=== PATIENT | female | born 1980 | race Caucasian/White ===

== ENCOUNTER 2016-10-27 13:59 | Emergency (ER) | payer MEDICAID ==
[2016-10-27 14:08] VITALS: RESP 18; TEMP 98.9
[2016-10-27] MEDS ORDERED: Sodium Chloride 0.9% 1,000 ML IV STA (14:46)
--- NOTE | 2016-10-27 14:59 | ED PDOC ---
Arrival/HPI - General Historian: Patient - History of Present Illness Time/Duration: < week Symptom Onset: Sudden Symptom Course: Unchanged Quality: Aching, Stabbing Severity Level: 8 Activities at Onset: Rest Context: Sitting - General Chief Complaint: GI Problem Time Seen by Provider: 10/27/16 14:06 - History of Present Illness Narrative History of Present Illness (Text): 10/27/16 14:49 36 F that is currently 22 weeks with no significant PMHx presents to [facility] with complaints of intractable nausea/vomitting, fever, productive cough and body aches x 3days. Pt states that she took her son to [facility] and began to feel above symptoms the night following the visit on 10/25/16. Pt has unable to tolerate any po intake for the past 2 days, and has vomitted multiple times with 4 episodes today. Pt has a productive cough with green sputum. Pt took her temperature at home and has been recorded at 104, however she has been taking tylenol which has been breaking her fever. Pt also describes complaints of body aches. She describes the pain as a stabbing sensation that is constant from her head, back and down her legs. Pt admits to headache, dizziness, sore throat, fever, bodyaches, and n/v. Pt denied chest pains, palpitations, diarrhea or urinary symptoms. 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 Past Medical History - Infectious Disease Hx of Infectious Diseases: None - Hematological/Oncological Hx Blood Disorders: No - Psychiatric Hx Substance Use: No - Anesthesia Hx Anesthesia: No Family/Social History Family/Social History: No Known Family HX Smoking Status: Never Smoked Hx Alcohol Use: No Hx Substance Use: No Allergies/Home Meds Allergies/Adverse Reactions: Allergies No Known Allergies Allergy (Verified 10/27/16 14:08) Home Medications: Home Meds Medication Instructions Recorded Confirmed No Known Home Med 10/27/16 10/27/16 Review of Systems - Review of Systems Constitutional: Fevers. absent: Fatigue Eyes: absent: Vision Changes, Photophobia ENT: Sore Throat. absent: Rhinorrhea Respiratory: Cough, Sputum (green). absent: SOB, Wheezing Cardiovascular: absent: Chest Pain, Palpitations, Edema Gastrointestinal: Abdominal Pain (pressure/tenderness llq), Nausea, Vomiting, Food Intolerance. absent: Constipation, Diarrhea Musculoskeletal: Back Pain, Neck Pain, Myalgias Skin: absent: Rash, Pruritis Neurological: Headache, Dizziness. absent: Focal Weakness Endocrine: absent: Diaphoresis, Polyuria, Polydipsia Hemo/Lymphatic: absent: Adenopathy, Easy Bruising Physical Exam Temperature: Afebrile Blood Pressure: Hypotensive Pulse: Tachycardic Respiratory Rate: Normal Appearance: Positive for: Uncomfortable Pain Distress: Mild Mental Status: Positive for: Alert and Oriented X 3 - Systems Exam Head: Present: Atraumatic, Normocephalic Pupils: Present: PERRL Extroacular Muscles: Present: EOMI Conjunctiva: Present: Normal Ears: Present: Normal, NORMAL TM Mouth: Present: Dry Pharnyx: No: ERYTHEMA, EXUDATE Neck: Present: Normal Range of Motion Respiratory/Chest: Present: Clear to Auscultation, Good Air Exchange. No: Respiratory Distress, Accessory Muscle Use Cardiovascular: Present: Regular Rate and Rhythm, Normal S1, S2. No: Murmurs Abdomen: Present: Tenderness (llq pressure/tenderness), Normal Bowel Sounds. No : Rebound, Guarding Upper Extremity: Present: Normal Inspection. No: Cyanosis, Edema Lower Extremity: Present: Normal Inspection. No: Edema Neurological: Present: GCS=15, CN II-XII Intact, Speech Normal Skin: Present: Warm, Dry, Normal Color. No: Rashes Psychiatric: Present: Alert, Oriented x 3, Normal Insight, Normal Concentration Vital Signs Temp Pulse Resp BP Pulse Ox 10/27/16 15:14 98.9 F 116 H 18 101/52 L 97 10/27/16 14:03 98.9 F 116 H 18 101/52 L 99 Medical Decision Making Re-evaluation Time: 16:35 Reassessment Condition: Unchanged ED Course and Treatment: 10/27/16 15:08 Seen and examined with the resident. Our history and physical exam reveals a young woman 22 weeks with a three-day history of fever to 104 along with cough congestion URI and generalized myalgias and arthralgias. She does have some nausea and vomiting. No abdominal pain. There is positive movement. No vaginal discharge or bleeding. Lungs are clear bilaterally.. ( Tolerico,Gene) 10/27/16 15:03 36 F 22wks presents to [facility] with complaints of intractable n/v, fever and body aches. - CBC - CMP - IVF - UA - Rapid flu - Reassess and dispo 10/27/16 16:30 Pt was reassessed. Pt is still feeling nauseous and is experiencing body aches. Labwork did not reveal any acute pathology. Pt can be discharged home with immediate followup with PMD and [facility] [employer] amarjit. Pt is encouraged to take plenty of fluids and tylenol for fever. (Nichoel Liu) - Lab Interpretations Lab Results: 10/27/16 15:00 10/27/16 15:00 Lab Results 10/27/16 15:00: WBC 5.8, RBC 3.72, Hgb 11.7 L, Hct 33.2 L, MCV 89.2, MCH 31.5, MCHC 35.2, RDW 13.2, Plt Count 214, MPV 9.3, Gran % 82.2 H, Lymph % (Auto) 11.1 L, [place] % (Auto) 6.2 H, Eos % (Auto) 0.3 L, Baso % (Auto) 0.2, Gran # 4.75, Lymph # 0.6 L, [place] # 0.4, Eos # 0.0, Baso # 0.01, Sodium 135, Potassium 3.5 L, Chloride 101, Carbon Dioxide 22, Anion Gap 16, BUN 10, Creatinine 0.5, Est GFR ( Amer) > 60, Est GFR (Non-Af Amer) > 60, Random Glucose 93, Calcium 8.8, Total Bilirubin 0.7, AST 32, ALT 33, Alkaline Phosphatase 83, Total Protein 7.1 , Albumin 3.6, Globulin 3.5, Albumin/Globulin Ratio 1.0 L, Urine Color Yellow, Urine Appearance Clear, Urine pH 6.0, Ur Specific [place] 1.025, Urine Protein 30 H, Urine Glucose (UA) Negative, Urine Ketones >=80, Urine Blood Negative, Urine Nitrate Negative, Urine Bilirubin Negative, Urine Urobilinogen 1.0 H, Ur Leukocyte Esterase Moderate H, Urine RBC Negative, Urine WBC 2 - 5, Ur Epithelial Cells Many, Urine Bacteria Many, Influenza Typ A,B (EIA) Negative for flu a/b - Medication Orders Current Medication Orders: Discontinued Medications Sodium Chloride (Sodium Chloride 0.9%) 1,000 mls @ 999 mls/hr IV .Q1H1M STA Stop: 10/27/16 15:46 Last Admin: 10/27/16 15:22 Dose: 999 MLS/HR eMAR Start Stop Document 10/27/16 15:22 SF (Rec: 10/27/16 15:22 SF [id number]) Intravenous Solution Start Date 10/27/16 Start Time 14:50 End Date 10/27/16 End time 15:51 Total Infusion Time 61 Disposition/Present on Arrival - Present on Arrival Any Indicators Present on Arrival: No History of DVT/PE: No History of Uncontrolled Diabetes: No Urinary Catheter: No History of Decub. Ulcer: No History Surgical Site Infection Following: None - Disposition Have Diagnosis and Disposition been Completed?: Yes Disposition Time: 16:35 Patient Plan: Discharge - Disposition Diagnosis: Cold, Nausea & vomiting Disposition: HOME/ ROUTINE Patient Problems: Current Active Problems Problem Status Diagnosed Cold Acute Nausea & vomiting Acute Condition: STABLE Discharge Instructions (ExitCare): Acute Nausea and Vomiting (ED) Additional Instructions: 1. Pt is to FU with [facility] [employer] amarjit 2. Pt is to FU with PMD amarjit 3. Pt is encouraged to drink plenty of fluids 4. Pt is to take tylenol for fever, avoid advil or nsaids 5. Pt is welcomed to return to [facility] ED if develop any acute symptoms. Referrals: Blayne Vega MD [Primary Care Provider] - Follow up with primary
[2016-10-27 15:04] LABS: ADD MANUAL DIFF? NO
[2016-10-27 15:08] LABS: BASO # 0.01 K/mm3 (0.0-2.0); BASO % 0.2 % (0.0-3.0); EOS % 0.3 % (1.5-5.0); GRAN # 4.75 (1.4-6.5); GRAN % 82.2 % (50.0-68.0); HEMATOCRIT 33.2 % (36.0-48.0); LYMPH # 0.6 (1.2-3.4); LYMPH % 11.1 % (22.0-35.0); MEAN CELL VOLUME 89.2 fL (80.0-105.0); MEAN CORPUSCULAR HEMOGLOBIN 31.5 pg (25.0-35.0); MEAN CORPUSCULAR HGB CONC 35.2 g/dl (31.0-37.0); MEAN PLATELET VOLUME 9.3 fl (7.0-11.0); MONO # 0.4 (0.1-0.6); MONO % 6.2 % (1.0-6.0); PLATELET COUNT 214 10^3/uL (120.0-450.0); RED CELL DISTRIBUTION WIDTH 13.2 % (11.5-14.5); URINE BILIRUBIN NEGATIVE (NEGATIVE); URINE BLOOD NEGATIVE (NEGATIVE); URINE GLUCOSE (UA) NEGATIVE (NEGATIVE); URINE KETONE >=80 mg/dL (NEGATIVE); URINE LEUKOCYTE ESTERASE MODERATE Leu/uL (NEGATIVE); URINE PROTEIN 30 mg/dL (<30 mg/dL); WHITE BLOOD COUNT 5.8 10^3/ul (4.5-11.0)
[2016-10-27 15:12] LABS: URINE APPEARANCE CLEAR (CLEAR); URINE COLOR YELLOW (YELLOW)
[2016-10-27 15:13] LABS: URINE RBC NEGATIVE /hpf (0-2)
[2016-10-27 15:14] VITALS: O2SAT 97
[2016-10-27 15:14] LABS: URINE BACTERIA MANY (NEG); URINE EPITHELIAL CELLS MANY /hpf (0-5)
[2016-10-27 15:27] LABS: ALKALINE PHOSPHATASE 83 U/L (38-133); ALT/SGPT 33 U/L (7-56); AST/SGOT 32 U/L (15-39); BILIRUBIN,TOTAL 0.7 mg/dL (0.2-1.3); BLOOD UREA NITROGEN 10 mg/dL (7-21); CALCIUM 8.8 mg/dL (8.4-10.5); CARBON DIOXIDE 22 mmol/L (21-33); CHLORIDE 101 mmol/L (98-107); GFR AFRICAN-AMERICAN > 60; GLUCOSE,RANDOM 93 mg/dL (70-110); POTASSIUM 3.5 mmol/L (3.6-5.0); SODIUM 135 mmol/L (132-148); TOTAL PROTEIN 7.1 g/dL (5.8-8.3)
[2016-10-27 16:55] VITALS: BP 99/57; PULSE 99
== END 2016-10-27 16:57 | disposition home or self-care (01) ==
LOC: ED 13:59
DX: R11.2 Nausea with vomiting, unspecified (principal); J00 Acute nasopharyngitis [common cold]
CPT/HCPCS: 80053; 81001; 85025; 87086; 87804; 96360; 99284; J7040

== ENCOUNTER 2016-11-21 14:50 | Emergency (ER) | payer MEDICAID ==
[2016-11-21 14:54] VITALS: TEMP 98.2
[2016-11-21] MEDS ORDERED: Sodium Chloride 0.9% 1,000 ML IV STA (15:06)
--- NOTE | 2016-11-21 15:16 | ED PDOC ---
Arrival/HPI - General Historian: Patient <Jennifer Vivas - Last Filed: 11/22/16 02:36> <Lauro Hernandez - Last Filed: 11/23/16 19:06> - General Chief Complaint: Seizure Time Seen by Provider: 11/21/16 14:53 - History of Present Illness Narrative History of Present Illness (Text): 11/21/16 15:11 36yr old female who is 25 weeks presents today with possible seizure. pt states she was just recently hospitalized for similar symptoms at [facility]. pt states that whenever she stands for long periods of time she gets dizzy. pt states she is having generalized weakness. she denies cp or sob. she denies headache. pt states she doesnt know what happened today. pt states she was standing outside talking to her friend and the next thing she knows she was in the ambulance. pt states she was just recently diagnosed with "seizures" pt states she is on some medication but doesn't know the name. she is c/o of bruised feeling to left leg; denies numbness or tingling in the extremity. no fever/chills. denies neck or back pain. no other complaints. (Jennifer Vivas) Past Medical History - Provider Review Nursing Documentation Reviewed: Yes - Travel History Have you recently traveled outside [place] w/in the past 3 mons?: No - Infectious Disease Hx of Infectious Diseases: None - Neurological Hx Seizures: Yes (Focal) Other/Comment: Hospitalized last week for seizure activity which seems to be Focal only. Pt aura is dizziness followed by blacking out. - Hematological/Oncological Hx Blood Disorders: No - Psychiatric Hx Substance Use: No - Anesthesia Hx Anesthesia: No <Jennifer Viavs - Last Filed: 11/22/16 02:36> Family/Social History - Physician Review Nursing Documentation Reviewed: Yes Family/Social History: Unknown Family HX Smoking Status: Never Smoked Hx Alcohol Use: No Hx Substance Use: No <Jennifer Vivas - Last Filed: 11/22/16 02:36> Allergies/Home Meds <Jennifer Vivas - Last Filed: 11/22/16 02:36> <Lauro Hernandez - Last Filed: 11/23/16 19:06> Allergies/Adverse Reactions: Allergies No Known Allergies Allergy (Verified 11/21/16 14:58) Home Medications: Home Meds Medication Instructions Recorded Confirmed Vit Calc,Iron,Folic 1 tab PO DAILY 11/21/16 11/21/16 [ Vitamins] Review of Systems - Review of Systems Constitutional: Fatigue. absent: Fevers Eyes: absent: Photophobia, Eye Pain Respiratory: absent: SOB, Cough Cardiovascular: absent: Chest Pain, Palpitations Gastrointestinal: absent: Abdominal Pain, Nausea, Vomiting Genitourinary Female: absent: Dysuria, Frequency, Hematuria Skin: absent: Rash, Pruritis Neurological: Dizziness. absent: Headache, Facial Droop <Jennifer Vivas - Last Filed: 11/22/16 02:36> Physical Exam Vital Signs Reviewed: Yes Temperature: Afebrile Blood Pressure: Normal Pulse: Regular Respiratory Rate: Normal Appearance: Positive for: Well-Appearing, Non-Toxic, Comfortable Pain Distress: None Mental Status: Positive for: Alert and Oriented X 3 Finger Stick Blood Glucose: 82 - Systems Exam Head: Present: Atraumatic Pupils: Present: PERRL Extroacular Muscles: Present: EOMI Conjunctiva: Present: Normal Mouth: Present: Moist Mucous Membranes Pharnyx: Present: Normal Neck: Present: Normal Range of Motion. No: MIDLINE TENDERNESS, Paraspinal Tenderness Respiratory/Chest: Present: Clear to Auscultation, Good Air Exchange. No: Respiratory Distress, Accessory Muscle Use Cardiovascular: Present: Regular Rate and Rhythm, Normal S1, S2. No: Murmurs Abdomen: No: Tenderness Back: Present: Normal Inspection. No: Midline Tenderness, Paraspinal Tenderness Upper Extremity: Present: Normal ROM Lower Extremity: Present: Normal ROM, Tenderness (left posterior thigh; there is small area of tenderness with abrasion, full rom of hip, no bony tenderness. ) Neurological: Present: GCS=15, Speech Normal Skin: Present: Warm, Dry Psychiatric: Present: Alert <Jennifer Vivas - Last Filed: 11/22/16 02:36> Medical Decision Making <Jennifer Vivas - Last Filed: 11/22/16 02:36> <Lauro Hernandez - Last Filed: 11/23/16 19:06> ED Course and Treatment: 11/21/16 15:18 36yr old female presents today with dizziness, syncope vs seizure, and generalized weakness. cbc: wnl cmp wnl ekg: irineo incomplete right bundle branch block, normal axis, normal intervals. no st elevations trop: <0.01 11/21/16 16:38 case discussed with the patients neurologist group; I spoke with the [employer] ATTENDANT licha; she knows the patient very well. pt was just admitted to the hospital at [place] for 6 days and discharged 4 days ago. the patient has EEG, which showed nonepileptic psychogenic seizures. No medications are to be given. the patient is to f/u in the office . 11/21/16 16:39 pt non toxic well appearing; no distress. denies any complaints at present time. pt states she wouldnt be in the hospital if her friend didnt call 911. pt states she knows what she has and knows she needs to f/u with her neurologist. pt seen and evaluated by dr. hernandez. will d/c home to f/u with neurologist; i discussed all results with patient and stressed importance of f/u with neurologist. advised immediate return if any concerning symptoms develop. impression; syncope f/u with neurologist within the next 2 days increase fluids return if symptoms worsen,persist or if new symptoms develop. (Jennifer Vivas) 11/23/16 19:04 Patient seen and examined; unremarkable exam is noted. Patient noted recent admission at [facility] and showed me paperwork reflecting a diagnosis of pseudoseizures and treatment with no antiepileptics. KYLE Vivas discussed case with providers at [facility], who confirmed the findings. (Lauro Hernandez) - Lab Interpretations Lab Results: 11/21/16 15:35 11/21/16 15:35 Lab Results 11/21/16 15:35: WBC 9.7 D, RBC 3.43 L, Hgb 10.6 L, Hct 30.3 L, MCV 88.3, MCH 30.9, MCHC 35.0, RDW 12.6, Plt Count 261, MPV 9.4, Gran % 70.0 H, Lymph % (Auto ) 21.5 L, Gray % (Auto) 7.2 H, Eos % (Auto) 1.0 L, Baso % (Auto) 0.3, Gran # 6.76 H, Lymph # 2.1, Gray # 0.7 H, Eos # 0.1, Baso # 0.03 11/21/16 15:35: Sodium 135, Potassium 3.6, Chloride 105, Carbon Dioxide 21, Anion Gap 13, BUN 9, Creatinine 0.4 L, Est GFR ( Amer) > 60, Est GFR (Non -Af Amer) > 60, Random Glucose 80, Calcium 8.7, Total Bilirubin 0.5, AST 19, ALT 24, Alkaline Phosphatase 92, Lactate Dehydrogenase 346, Total Creatine Kinase 25 L, Troponin I < 0.01, Total Protein 7.0, Albumin 3.5, Globulin 3.6, Albumin/Globulin Ratio 1.0 L - Medication Orders Current Medication Orders: Discontinued Medications Sodium Chloride (Sodium Chloride 0.9%) 1,000 mls @ 999 mls/hr IV .Q1H1M STA Stop: 11/21/16 16:06 Last Admin: 11/21/16 15:40 Dose: 999 mls/hr - PA / [employer] ATTENDANT / Resident Statement / has reviewed & agrees with the documentation as recorded. / has examined the patient and agrees with the treatment plan. <Lauro Hernandez - Last Filed: 11/23/16 19:06> Disposition/Present on Arrival - Present on Arrival Any Indicators Present on Arrival: No History of DVT/PE: No History of Uncontrolled Diabetes: No Urinary Catheter: No History of Decub. Ulcer: No History Surgical Site Infection Following: None - Disposition Have Diagnosis and Disposition been Completed?: Yes Disposition Time: 16:29 Patient Plan: Discharge <Jennifer Vivas - Last Filed: 11/22/16 02:36> <Lauro Hernandez - Last Filed: 11/23/16 19:06> - Disposition Diagnosis: Syncope Disposition: HOME/ ROUTINE Condition: GOOD Discharge Instructions (ExitCare): Syncope (ED) Additional Instructions: Follow up with your neurologist within the next 2 days increase fluids return immediately if symptoms worsen, persist or if new symptoms develop. Referrals: Blayne Vega MD [Primary Care Provider] - Follow up with primary Luisito Perez [Other] - Follow up with primary
[2016-11-21 15:48] LABS: ADD MANUAL DIFF? NO
[2016-11-21 15:59] LABS: BASO # 0.03 K/mm3 (0.0-2.0); BASO % 0.3 % (0.0-3.0); EOS # 0.1 (0.0-0.7); GRAN # 6.76 (1.4-6.5); HEMATOCRIT 30.3 % (36.0-48.0); LYMPH # 2.1 (1.2-3.4); LYMPH % 21.5 % (22.0-35.0); MEAN CELL VOLUME 88.3 fL (80.0-105.0); MEAN CORPUSCULAR HEMOGLOBIN 30.9 pg (25.0-35.0); MEAN PLATELET VOLUME 9.4 fl (7.0-11.0); MONO # 0.7 (0.1-0.6); MONO % 7.2 % (1.0-6.0); PLATELET COUNT 261 10^3/uL (120.0-450.0); RED CELL DISTRIBUTION WIDTH 12.6 % (11.5-14.5); WHITE BLOOD COUNT 9.7 10^3/ul (4.5-11.0)
[2016-11-21 16:01] LABS: ALKALINE PHOSPHATASE 92 U/L (38-133); ALT/SGPT 24 U/L (7-56); AST/SGOT 19 U/L (15-39); BILIRUBIN,TOTAL 0.5 mg/dL (0.2-1.3); BLOOD UREA NITROGEN 9 mg/dL (7-21); CALCIUM 8.7 mg/dL (8.4-10.5); CARBON DIOXIDE 21 mmol/L (21-33); CHLORIDE 105 mmol/L (98-107); GFR AFRICAN-AMERICAN > 60; GLUCOSE,RANDOM 80 mg/dL (70-110); POTASSIUM 3.6 mmol/L (3.6-5.0); SODIUM 135 mmol/L (132-148)
[2016-11-21 16:24] LABS: TROPONIN I < 0.01 ng/mL
[2016-11-21 18:52] VITALS: BP 118/58; PULSE 75; RESP 18; O2SAT 98
--- NOTE | 2016-11-21 20:54 | CARD ---
APPROVED REPORT EKG Measurement Heart [id number] CO [id number] <Conclusion> Normal sinus rhythm Incomplete right bundle branch block Borderline ECG
== END 2016-11-21 16:35 | disposition home or self-care (01) ==
LOC: ED 14:50
DX: O26.892 Other specified pregnancy related conditions, second trimester (principal); Z3A.25 25 weeks gestation of pregnancy; R55 Syncope and collapse
CPT/HCPCS: 80053; 82550; 83615; 84484; 85025; 93005; 96360; 99285; J7040